=== PATIENT | male | born 1950 | race Caucasian/White ===

== ENCOUNTER 2018-01-02 13:43 | Emergency (ER) | payer OTHER ==
[~2018-01-02] VITALS: Ht 177.8 cm; Wt 73.0 kg
[2018-01-02 13:50] VITALS: BP 131/78
== END 2018-01-02 16:30 | disposition left against medical advice (07) ==
LOC: ER 13:43
DX: Z53.21 Procedure and treatment not carried out due to patient leaving prior to being seen by health care provider (principal)